=== PATIENT | female | born 1945 | race Caucasian/White ===

== ENCOUNTER 2019-05-17 22:31 | Emergency (ER) | payer OTHER ==
[2019-05-17 22:40] VITALS: TEMP 101.5; BMI 26.6
--- NOTE | 2019-05-17 23:35 | PDOC ---
*Physical Exam - Vital Signs Last Vital Signs Temp Pulse Resp BP Pulse Ox 101.5 F H 94 H 18 157/58 L 95 05/17/19 22:36 05/17/19 22:36 05/17/19 22:36 05/17/19 22:36 05/17/19 22:36 Medical Decision Making - Medical Decision Making 05/17/19 23:35 Patient seen by the advanced practice provider Ancillary testing reviewed as necessary. I agree with plan as outlined by the advanced practice provider. 05/18/19 03:04 Discharge - Discharge Information Problems reviewed: Yes Clinical Impression/Diagnosis: Flu-like symptoms Fever Qualifiers: Fever type: unspecified Qualified Code(s): R50.9 - Fever, unspecified Condition: Stable Disposition: HOME - Follow up/Referral Referrals: ON STAFF,NOT [Primary Care Provider] - - Patient Discharge Instructions Patient Printed Discharge Instructions: DI for Viral Syndrome Additional Instructions: Your Discharge Instructions: You must call primary care physician within 24 hours to arrange follow-up. Return to the Emergency Department with any new, persistent or worsening symptoms, for fever, chills, SOB, dizziness or any other concerning changes that may occur. Continue Tylenol every 4 hours for fever symptoms. If the fever is persistent you must follow-up with your primary care doctor. If there are any concerns for coronavirus you must get in touch with the department of health for further evaluation. - Post Discharge Activity
--- NOTE | 2019-05-17 23:47 | PDOC ---
History of Present Illness - General Chief Complaint: Cold Symptoms Stated Complaint: FEVER Time Seen by Provider: 05/17/19 23:35 History Source: Patient Exam Limitations: No Limitations - History of Present Illness Initial Comments: 05/17/19 23:39 Patient is a 74 year old female with h/o HTN, vertigo, appendectomy, c/o fever since yesterday. Other related symptoms chills, bodyache, headache, epigastric pain. Fever is subjective but daughter took the temp at home at 2155 tonight was 102.2. (-) Flu shot this season. Did not take any meds for the fever. FISCHER described as 3/10, intermittent, throbbing. Denies cough, sorethroat, dysuria, neck pain. She describes the epigastric pain as acid like and burning. She is on omeprazole twice daily but only took the dose this morning. Patient with no recent travel, no exposures to persons has have travelled. Daughter brought the mother because she was concerned about the [place] virus. PMD: Pam López PMHX: as above PSocHx: neg cig, drug, etoh. Lives alone FamHx: Noncontributory ALL: NKDA GENERAL/CONSTITUTIONAL: [No fever or chills. No weakness. No weight change.] HEAD, EYES, EARS, NOSE AND THROAT: [No change in vision. No ear pain or discharge. No sore throat.] CARDIOVASCULAR: [No chest pain or shortness of breath.] RESPIRATORY: [No cough, wheezing, or hemoptysis.] GASTROINTESTINAL: [No nausea, vomiting, diarrhea or constipation. No rectal bleeding.] GENITOURINARY: [No dysuria, frequency, or change in urination.] MUSCULOSKELETAL: [No joint or muscle swelling or pain. No neck or back pain.] SKIN AND BREASTS: [No rash or easy bruising.] NEUROLOGIC: [No headache, vertigo, loss of consciousness, or loss of sensation.] PSYCHIATRIC: [No depression or anxiety.] ENDOCRINE: [No increased thirst. No abnormal weight change.] HEMATOLOGIC/LYMPHATIC: [No anemia, easy bleeding, or history of blood clots.] ALLERGIC/IMMUNOLOGIC: [No hives or skin allergy. No latex allergy.] GENERAL: [The patient is awake, alert, and fully oriented, in no acute distress.] HEAD: [Normal with no signs of trauma.] EYES: [Pupils equal, round and reactive to light, extraocular movements intact, sclera anicteric, conjunctiva clear.] ENT: [Ears normal, nares patent, oropharynx clear without exudates. Moist mucous membranes.] NECK: [Normal range of motion, supple without lymphadenopathy, JVD, or masses.] LUNGS: [Breath sounds equal, clear to auscultation bilaterally. No wheezes, and no crackles.] HEART: [Regular rate and rhythm, normal S1 and S2 without murmur, rub.] ABDOMEN: [Soft, nontender, normoactive bowel sounds. No guarding, no rebound. No masses.] EXTREMITIES: [Normal range of motion, no edema. No clubbing or cyanosis. No cords, erythema, or tenderness.] NEUROLOGICAL: [Cranial nerves II through XII grossly intact. Normal speech, normal gait.] PSYCH: [Normal mood, normal affect.] SKIN: [Warm, Dry, normal turgor, no rashes or lesions noted.] Past History - Past Medical History Allergies/Adverse Reactions: Allergies Allergy/AdvReac Type Severity Reaction Status Date / Time No Known Allergies Allergy Verified 05/17/19 22:41 COPD: No HTN: Yes - Psycho Social/Smoking Cessation Hx Smoking History: Never smoked Have you smoked in the past 12 months: No Information on smoking cessation initiated: No Hx Alcohol Use: No Drug/Substance Use Hx: No *Physical Exam - Vital Signs Last Vital Signs Temp Pulse Resp BP Pulse Ox 101.5 F H 94 H 18 157/58 L 95 05/17/19 22:36 05/17/19 22:36 05/17/19 22:36 05/17/19 22:36 05/17/19 22:36 Medical Decision Making - Medical Decision Making 05/17/19 23:39 Patient is a 74 year old female with h/o HTN, vertigo, appendectomy, c/o fever since yesterday. Other related symptoms chills, bodyache, headache, epigastric pain. Fever is subjective but daughter took the temp at home at 2155 tonight was 102.2. (-) Flu shot this season. Did not take any meds for the fever. Denies cough, sorethroat, dysuria. Symptoms consistent with flulike illness will get flu swab. Tylenol for fever Had a discussion with the daughter that if she was concerned about the coronavirus she should call the [facility], stay home, and [facility] will come to do the testing at home. Daughter states she is well aware of this process she works in the health care industry. Lab review notes flu is negative 05/18/19 01:37 Chest x-ray is negative for acute infiltrate. Urine negative. I discussed the physical exam findings, ancillary test results and final diagnoses with the patient. I answered all of the patient's questions. The patient was satisfied with the care received and felt comfortable with the discharge plan and treatment plan. The Patient agrees to follow up with the primary care physician within 24-72 hours. Discharge - Discharge Information Problems reviewed: Yes Clinical Impression/Diagnosis: Flu-like symptoms Fever Qualifiers: Fever type: unspecified Qualified Code(s): R50.9 - Fever, unspecified Condition: Stable Disposition: HOME - Follow up/Referral Referrals: ON STAFF,NOT [Primary Care Provider] - - Patient Discharge Instructions Patient Printed Discharge Instructions: DI for Viral Syndrome Additional Instructions: Your Discharge Instructions: You must call primary care physician within 24 hours to arrange follow-up. R eturn to the Emergency Department with any new, persistent or worsening symptoms, for fever, chills, SOB, dizziness or any other concerning changes that may occur. Continue Tylenol every 4 hours for fever symptoms. If the fever is persistent you must follow-up with your primary care doctor. If there are any concerns for coronavirus you must get in touch with the department of health for further evaluation. - Post Discharge Activity
[2019-05-17] MEDS ORDERED: ACETAMINOPHEN 500 MG TABLET (FP) PO ONE (23:49)
[2019-05-17] MEDS ORDERED: FAMOTIDINE 20 MG TABLET PO ONE (23:55)
[2019-05-18] MEDS ORDERED: ACETAMINOPHEN 325 MG TABLET (FP) ONE (00:12)
[2019-05-18] MEDS ORDERED: FAMOTIDINE 20 MG TABLET ONE (00:12)
[2019-05-18 01:42] LABS: URINE APPEARANCE CLEAR; URINE BILIRUBIN NEGATIVE (NEGATIVE); URINE COLOR YELLOW; URINE GLUCOSE (UA) NEGATIVE (NEGATIVE); URINE KETONE NEGATIVE (NEGATIVE); URINE LEUK ESTERASE NEGATIVE (NEGATIVE); URINE NITRITE NEGATIVE (NEGATIVE); URINE PROTEIN NEGATIVE (NEGATIVE)
[2019-05-18 02:59] VITALS: BP 123/72; PULSE 85
== END 2019-05-18 02:05 | disposition home or self-care (01) ==
LOC: JER 22:31
DX: J11.1 Influenza due to unidentified influenza virus with other respiratory manifestations (principal); I10 Essential (primary) hypertension; R42 Dizziness and giddiness
CPT/HCPCS: 71046-TC-FY; 81003; 87804; 99283-25